=== PATIENT | male | born 1990 | race Caucasian/White ===

== ENCOUNTER 2024-05-20 16:36 | Outpatient (REF) | payer BC, SELFPAY ==
[2024-05-22 10:16] LABS: Hepatitis C Ab w Rflx HCV PCR Negative (Negative)
[2024-05-22 11:26] LABS: HIV-1/2 Ag & Ab Screen Negative (Negative)
[2024-05-22 12:21] LABS: Syphilis Serology (RPR) Negative (Negative)
[2024-05-22 15:28] LABS: GC Result Negative (Negative)
[2024-05-22 16:26] LABS: Chlamydia Result Positive (Negative)
== END 2024-05-20 16:37 | disposition home or self-care (01) ==
LOC: LBN 16:36
PROVIDERS: Visit Provider Physician Assistant Medical
DX: Z20.2 Contact with and (suspected) exposure to infections with a predominantly sexual mode of transmission (principal)
CPT/HCPCS: 86803; 87389; 87491; 87591; 86592

== ENCOUNTER 2024-06-01 08:51 | Outpatient (REF) | payer BC, SELFPAY ==
[2024-06-02 12:00] LABS: Chlamydia Result Positive (Negative); GC Result Negative (Negative)
== END 2024-06-01 08:52 | disposition home or self-care (01) ==
LOC: NCHCN 08:51
PROVIDERS: PCP Physician Assistant; Visit Provider Physician Assistant
DX: Z11.59 Encounter for screening for other viral diseases (principal)
CPT/HCPCS: 87491; 87591

== ENCOUNTER 2025-07-08 06:29 | Emergency (ER) | payer BC, SELFPAY ==
[2025-07-08 06:47] VITALS: BP 136/90; PULSE 102; RESP 18; TEMP 37; O2SAT 97
--- NOTE | 2025-07-08 07:15 | W.ED.GENAD ---
Discharge Plan Disposition Patient Disposition: Home Condition: Stable Discharge Details Clinical Impression: Dental abscess Primary Care Provider: Florian Tucker ED Provider: Tyler Delgadillo Home Meds and New Rx's Prescriptions: New sulfamethoxazole-trimethoprim [Bactrim DS] 800-160 mg tablet 1 tab PO BID Qty: 14 0RF amoxicillin-pot clavulanate 875-125 mg tablet 1 tab PO BID Qty: 14 0RF Continued buprenorphine-naloxone [Suboxone] 8-2 mg film 1 film sublingual DAILY Discharge Instructions Additional Instructions: Take the antibiotics as prescribed. You can take 1000 mg of acetaminophen and 600 mg of ibuprofen every 6 hours as needed. Follow-up with a dentist as soon as you can. If you feel more ill or have severe worsening pain or high fevers return to the emergency department for reevaluation. Stand Alone Forms: Portal Information HPI General Mode of arrival: ambulatory. Date/Time Provider Initiated Documentation: 07/08/25 06:33. Limitations to Documentation: no limitations. Information obtained by: patient. History of Present Illness 35 year old M presents to the emergency department with the chief complaint of dental pain/swelling, described as moderate, Quality is described as aching, and is localized to the mouth. Patient reports no radiation. Patient started experiencing this day(s) (5) and it has been constant. No relieving factors improve symptom(s), No exacerbating factors reported . Patient notes no other symptoms.. Patient did receive the following treatments prior to arrival, NSAID Related Data Home Medications ?Medication ?Instructions ?Recorded ?Confirmed amoxicillin 875 mg-potassium 1 tab PO BID #14 tabs 07/08/25 clavulanate 125 mg tablet buprenorphine 8 mg-naloxone 2 mg 1 film sublingual DAILY 07/08/25 07/08/25 sublingual film (Suboxone) sulfamethoxazole 800 1 tab PO BID #14 tabs 07/08/25 mg-trimethoprim 160 mg tablet (Bactrim DS) Previous Rx's ?Medication ?Instructions ?Recorded amoxicillin 875 mg-potassium 1 tab PO BID #14 tabs 07/08/25 clavulanate 125 mg tablet sulfamethoxazole 800 1 tab PO BID #14 tabs 07/08/25 mg-trimethoprim 160 mg tablet (Bactrim DS) Allergies Allergy/AdvReac Type Severity Reaction Status Date / Time No Known Allergies Allergy Verified 07/08/25 06:51 General Stated Complaint: DentalOral MARY: 4 Review of Systems All systems reviewed & are unremarkable except as noted in HPI and below Constitutional Constitutional: Denies chills, Denies fever(s) and Denies weakness ENT Ears, Nose, Mouth, and Throat: Reports dental pain Cardiovascular Cardiovascular: Denies chest pain and Denies dyspnea Respiratory Respiratory: Denies cough and Denies dyspnea Gastrointestinal Gastrointestinal: Denies abdominal pain and Denies vomiting Neurologic Neurologic: Denies weakness Exam Const General: no acute distress Orientation: alert HENMT Ears: external ears normal General nose exam: external nose normal Mouth: moist mucous membranes Teeth and gingiva: abnormal dentition Eyes General: appearance normal, both eyes and all related structures Neck Neck: normal visual inspection Resp Effort & Inspection: normal respiratory effort and able to speak in complete sentences Cardio Rate: regular rate Skin General skin exam: no rashes or lesions noted Neuro General: patient alert and patient oriented x3 Extrem General: normal to inspection Psych Mental Status: mental status grossly normal Course Vital Signs Vital signs: Vital Signs Temperature 37.0 C 07/08/25 06:47 Pulse 102 H 07/08/25 06:47 Respiratory Rate 18 07/08/25 06:47 Blood Pressure 136/90 07/08/25 06:47 Pulse Oximetry 97 07/08/25 06:47 Temperature 37.0 C 07/08/25 06:47 Temperature Source Oral 07/08/25 06:47 Pulse 102 H 07/08/25 06:47 Respiratory Rate 18 07/08/25 06:47 Blood Pressure 136/90 07/08/25 06:47 Blood Pressure Position Sitting 07/08/25 06:47 Pulse Oximetry 97 07/08/25 06:47 Oxygen Delivery Method Room Air 07/08/25 06:47 Oxygen Flow Rate 0 07/08/25 06:47 Pain Level 4 07/08/25 06:47 Medical Decision Making 35-year-old male comes in with 4 to 5 days of right upper mid molar pain and swelling. Denies any high fevers or chills. No difficulty swallowing or breathing. He has mild swelling over the right cheek overlying the right upper mid molars. He has no periorbital swelling. He has no pain in the eyes or changes in vision. He has full range of motion of his eyes without any pain. He has a right upper mid molar that is severely eroded. Is no visible apical abscess that I can drain. He has a normal posterior pharynx with midline uvula. No submandibular swelling. No pain over the hyoid. No restricted neck movements. He is talking and breathing normally without stridor or drooling. He has no findings on exam to suggest entities such as Roney, retropharyngeal abscess, peritonsillar abscess, or orbital cellulitis. I suspected dental abscess. Administered him on Augmentin and Bactrim and he will follow-up with a dentist as soon as possible. Return precautions given. Differential Diagnosis Differential Diagnosis: Dental abscess, pulpitis, PFSH All Active Problems (Updated 07/08/25 @ 07:18 by Tyler Delgadillo MD) Dental abscess (Acute) Social History Smoking/Tobacco Use Status: Current every day Tobacco Type: cigarettes and e-cigarettes Smoking risk assessment performed?: Yes Alcohol Intake: current Alcohol Intake frequency: 3 or more drinks per day Alcohol type: beer Drug use: Current Sobriety Substance use type: former substance user Housing: apartment Do you feel safe at home: Yes Do you feel safe in your relationship?: Yes
[2025-07-08] MEDS: Sulfameth/Trimeth DS TAB 1 TAB PO (08:53)
[2025-07-08] MEDS: Ketorolac 15 MG/ML VIAL IM (08:53)
[2025-07-08] MEDS: Amoxicillin 875/Clav. 125 TAB PO (08:53)
[2025-07-08 08:56] VITALS: BP 128/96; BP 136/90; PULSE 102; PULSE 94; RESP 16; RESP 18; TEMP 37; O2SAT 97
== END 2025-07-08 08:58 | disposition home or self-care (01) ==
PROVIDERS: Emergency Provider Emergency Medicine; PCP Physician Assistant
DX: K04.7 Periapical abscess without sinus (principal)
CPT/HCPCS: 96372; 99284; 99283; J1885